=== PATIENT | female | born 1950 ===

== ENCOUNTER 2019-01-04 16:08 | Emergency (ER) | payer MEDICARE, BC ==
--- NOTE | 2019-01-04 16:22 | UC ---
Skin Complaint HPI - HPI Summary HPI Summary: The patient states that she got bitten on the left lower anterior leg approximate 2 months ago by a fire aunt, (the states it was much longer than that). Patient states she's had a scab develop and some tenderness, she has tried to open the area but has had no drainage. She denies any fever or chills. - History of Current Complaint Time Seen by Provider: 01/04/19 16:13 Stated Complaint: SKIN COMPLAINT Hx Obtained From: Patient ?: No Onset/Duration: Gradual Onset Skin Exposure Onset/Duration: Weeks Ago Timing: Constant Onset Severity: Mild Current Severity: Mild Location: Other Character: Swelling, Pain, Redness Aggravating Factor(s): Touch Alleviating Factor(s): Nothing Associated Signs & Symptoms: Positive: Tenderness. Negative: Drainage - Allergy/Home Medications Allergies/Adverse Reactions: Allergies Allergy/AdvReac Type Severity Reaction Status Date / Time Sulfa (Sulfonamide Allergy Intermediate unk Verified 01/04/19 16:25 Antibiotics) Home Medications: Home Medications Aspirin [Aspirin Childrens 81 MG] 81 mg PO DAILY 01/04/19 [History Confirmed ] Levothyroxine TAB* [Synthroid TAB*] 75 mcg PO DAILY 01/04/19 [History Confirmed 01/04/19] PMH/Surg Hx/FS Hx/Imm Hx Previously Healthy: Yes Endocrine History: Thyroid Disease - Family History Known Family History: Positive: Non-Contributory - Social History Occupation: Retired Review of Systems All Other Systems Reviewed And Are Negative: Yes Skin: Positive: Other - Very small scabbed area left lower anterior leg which has worsened over the past week. Patient has been squeezing the area no pus or anything else been expressed. Is Patient Immunocompromised?: No Physical Exam Triage Information Reviewed: Yes Appearance: Well-Appearing, No Pain Distress, Well-Nourished Vital Signs Reviewed: Yes Skin: Positive: Other - Small scabbed area left lower anterior leg measuring approximately 5 mm in diameter, hard to touch and tender, minimal erythema is present, no streaking and no swelling. Course/Dx - Course Course Of Treatment: Patient has been comfortable here. I believe this is more of an infected insect bite possibly made worse by her squeezing it. I don't believe at this point in time this is ready to be opened if at all. I'm placing her on cephalexin and to apply warm moist compresses to the area and [facility]up [facility] if no improvement by early next week. - Diagnoses Provider Diagnosis: Abscess of leg, left Discharge - Sign-Out/Discharge Documenting (check all that apply): Patient Departure All imaging exams completed and their final reports reviewed: No Studies - Discharge Plan Condition: Fair Disposition: HOME Prescriptions: Cephalexin CAP* [Keflex 500 CAP*] 500 mg PO TID 10 Days #30 cap Patient Education Materials: Abscess (ED) Referrals: No Primary Care Phys,NOPCP [Primary Care Provider] - [facility] [Outside] Additional Instructions: Warm moist compresses to the area 4-6 times a day for 20 minutes each time. Follow[facility]up at the [facility] if no improvement or worsening symptoms on Monday or Monday of next week. Go to the emergency room if you have increased swelling, redness, red streaks, fever or chills or vomiting. - Billing Disposition and Condition Condition: FAIR Disposition: Home
[2019-01-04 16:24] VITALS: BP 117/62
== END 2019-01-04 16:32 | disposition home or self-care (01) ==
LOC: UCEAST 16:08
DX: L02.416 Cutaneous abscess of left lower limb (principal); E07.9 Disorder of thyroid, unspecified; Z79.890 Hormone replacement therapy; Z88.2 Allergy status to sulfonamides; Z79.82 Long term (current) use of aspirin
CPT/HCPCS: 99202; G0463

== ENCOUNTER 2019-01-17 08:45 | Emergency (ER) | payer MEDICARE, BC ==
--- OUTSIDE RECORDS SUMMARY | 2019-01-17 08:53 | XMS REPORT | Continuity of Care Document ---
:1950 External Reference #:[id number] Author Name Lida Almazan Care Team Providers Name Role Phone Messi Amaral M.D.,FACP Care Team Information Finish Specialist Unavailable Payers Date Identification Numbers Payment Provider Subscriber Policy Number: [id number] [facility] Kathryn Keenan PayID: [id number] [address] [address] [place] [address] Policy Number: [id number] Medicare Kathryn Keenan PayID: [id number] [address] [place] [address] Problems Active Problems Provider Date Cellulitis and abscess of lower limb Wili Penaloza MD Onset: 01/08/2019 Social History Type Date Description Comments Sex Unknown Tobacco Use Start: Unknown Patient has never smoked Smoking Status Reviewed: 01/08/19 Patient has never smoked Allergies, Adverse Reactions, Alerts Active Allergies Reaction Severity Comments Date Sulfa 01/08/2019 Medications Active Medications SIG Qnty Indications Ordering Provider Date Levoxyl take 1 tablet Unknown 75mcg Tablets once daily Keflex 1 tab by mouth Unknown 500mg Capsules three times a day Vital Signs Date Vital Result Comment 01/08/2019 1:24pm Weight 122.00 lb Heart Rate 78 /min BP Systolic 122 mmHg BP Diastolic 70 mmHg Body Temperature 98.6 F O2 % BldC Oximetry 98 % 01/12/2012 1:37pm Heart Rate 88 /min BP Systolic Lying Down 136 mmHg BP Diastolic Lying Down 90 mmHg Respiratory Rate 18 /min Procedures Date Code Description Status 01/12/2012 02853 EKG Tracing & Interpretation Completed Encounters Type Date Location Provider Dx Diagnosis Office Visit 01/12/2012 [employer] Internal Messi Suazo 413.9 Angina Pectoris 1:37p Medicine Dominic Amaral.,FACP Other Unspec V72.60 Laboratory Examination, Unspecified Plan of Treatment 01/08/2019 - Wili Penaloza [id number] Cutaneous abscess of left lower limbComments: Continue the antibiotic and call us next week if not continuing to improve. Sometimes 14 days of antibiotics or a change in antibiotic may be necessary.
[2019-01-17 08:59] VITALS: BP 124/58
--- NOTE | 2019-01-17 09:29 | UC ---
Complaint Female HPI - HPI Summary HPI Summary: Pt is 68 y/o female with vaginal burning and itching after finishing 10 day regimen of antibiotic for left leg skin infection. States she has had yeast infections previously and her current sx are similar. Denies vaginal discharge. Denies dysuria, incontinence, abdominal pain, nausea, vomiting. She attempted to use Monistat yesterday but stopped d/t discomfort. No other complaints at this time. - History Of Current Complaint Chief Complaint: UCGU Stated Complaint: URINE ISSUES Time Seen by Provider: 01/17/19 09:20 Hx Obtained From: Patient Hx Last Menstrual Period: post Onset/Duration: Sudden Onset Timing: Lasting Days Severity Initially: Mild Severity Currently: Mild Pain Intensity: 4 Character: Burning, Cramping Aggravating Factor(s): Nothing Alleviating Factor(s): Nothing Associated Signs And Symptoms: Negative: Fever, Back Pain, Vaginal Bleeding/ Discharge, Vaginal Discharge, Nausea - Risk Factors Ectopic Risk Factor: Negative - Allergies/Home Medications Allergies/Adverse Reactions: Allergies Allergy/AdvReac Type Severity Reaction Status Date / Time Sulfa (Sulfonamide Allergy Intermediate unk Verified 01/17/19 08:59 Antibiotics) PMH/Surg Hx/FS Hx/Imm Hx Previously Healthy: Yes - Finished 10 day antibiotic regimen for skin infection. - Surgical History Surgical History: None - Family History Known Family History: Positive: Non-Contributory - Social History Alcohol Use: None Substance Use Type: None Smoking Status (MU): Never Smoked Tobacco Review of Systems All Other Systems Reviewed And Are Negative: Yes Constitutional: Negative: Fever, Chills Gastrointestinal: Negative: Abdominal Pain, Vomiting, Nausea Genitourinary: Positive: Vaginal/Penile Burning, Vaginal/Penile Itching. Negative: Dysuria, Hematuria, Frequency, Urgency, Vaginal/Penile Discharge Physical Exam Triage Information Reviewed: Yes Appearance: Well-Appearing, No Pain Distress Vital Signs: Initial Vital Signs Temp 98.7 F 01/17/19 08:56 Pulse 75 01/17/19 08:56 Resp 16 01/17/19 08:56 BP 124/58 01/17/19 08:56 Pulse Ox 100 01/17/19 08:56 Vital Signs Reviewed: Yes Eye Exam: Normal Eyes: Positive: Conjunctiva Clear ENT Exam: Normal ENT: Positive: Normal ENT inspection Neck: Positive: Supple, Nontender Respiratory: Positive: Lungs clear Cardiovascular: Positive: RRR Abdomen Description: Positive: Nontender, Soft. Negative: CVA Tenderness (R), CVA Tenderness (L), Distended Bowel Sounds: Positive: Present Pelvic Exam: Positive: Other - Patient refused. Musculoskeletal Exam: Normal Musculoskeletal: Positive: Strength Intact, ROM Intact Neurological Exam: Normal Neurological: Positive: Alert, Muscle Tone Normal Psychological Exam: Normal Skin Exam: Normal Skin: Negative: Rashes Complaint Female Dx - Course Course Of Treatment: 68 y/o female s/p 10-day antibiotic regimen with vaginal burning and itching, consistent with previous yeast infections. U/A negative. No relief with Monistat. Given prescription for fluconazole, to f/u with PCP. Patient seen in collaboration with the physician executive staff assistant student. Urinalysis is negative. Consistent with yeast. - Differential Dx/Diagnosis Differential Diagnosis/HQI/PQRI: Urinary Tract Infection, Other - urinary tract infection, vulvovaginal candidiasis Provider Diagnosis: Candidiasis of genitalia in female Discharge - Sign-Out/Discharge Documenting (check all that apply): Patient Departure All imaging exams completed and their final reports reviewed: No Studies - Discharge Plan Condition: Good Disposition: HOME Prescriptions: Fluconazole 150 MG TAB* [Diflucan 150 MG TAB*] 150 mg PO ONCE #1 tablet Patient Education Materials: Yeast Infection (ED) Referrals: No Primary Care Phys,NOPCP [Primary Care Provider] - Additional Instructions: Take fluconazole as prescribed. Return with new or worsening symptoms. F/u with your PCP. - Billing Disposition and Condition Condition: GOOD Disposition: Home - Attestation Statements Document Initiated by Scribe: Yes Documenting Scribe: TRACY Dunbar Provider For Whom Amanuel is Documenting (Include Credential): Dr. Jones Scribe Attestation: Sathish Lee PA-S, scribed for Dr. Jones on 01/17/19 at 1043. Scribe Documentation Reviewed: Yes Provider Attestation: The documentation as recorded by the amanuel, TRACY Dunbar accurately reflects the service I personally performed and the decisions made by Dr. Robert horner Status of Scribe Document: Viewed
== END 2019-01-17 10:00 | disposition home or self-care (01) ==
LOC: UCEAST 08:45
DX: B37.3 Candidiasis of vulva and vagina (principal); Z88.1 Allergy status to other antibiotic agents
CPT/HCPCS: 81003; 87086; 99212; G0463